=== PATIENT | female | born 1995 | race Hispanic/Latino ===

== ENCOUNTER 2023-06-05 18:27 | Emergency (ER) | payer OTHER, SELFPAY ==
[2023-06-05 19:05] LABS: #Basophils 0.1 10x3/uL (0.0-0.2); #Eosinphils 0.8 10x3/uL (0.0-0.5); #Monocytes 0.6 10x3/uL (0.0-1.1); #Neutrophils 7.1 10x3/uL (1.5-8.4); %Basophils 0.5 % (0.0-2.0); %Eosinophils 7.4 % (0.0-6.0); %Lymphocytes 21.9 % (18.0-47.0); %Monocytes 5.2 % (0.0-10.0); %Neutrophils 64.6 % (40.0-75.0); Hemoglobin 14.7 g/dL (12.0-15.5); Mean Corpuscular Hemoglobin 29.2 pg (27.0-33.0); Mean Corpuscular Volume 83.3 fl (81.6-98.3); Mean Platelet Volume 9.4 fl (7.4-10.4); Platelet Count 286 10x3/uL (150-450); RBC Distribution Width 12.7 % (11.5-14.5); Red Blood Cell (RBC) Count 5.04 10x6/uL (3.90-5.03)
[2023-06-05 19:17] LABS: ALT (SGPT) 35 U/L (8-55); AST (SGOT) 21 U/L (5-34); Albumin 4.1 g/dL (3.5-5.0); Alkaline Phosphatase 64 U/L (40-110); Anion Gap 14 mmol/L (10-20); BUN (Urea Nitrogen) 12 mg/dL (7.0-18.7); Bilirubin, Total 0.7 mg/dL (0.2-1.2); Calc. Creatinine Clearance 0 mL/min (70-130); Calcium 9.1 mg/dL (7.8-10.44); Carbon Dioxide 26 mmol/L (22-29); Chloride 102 mmol/L (98-107); Estimated GFR 120; Globulin 3.6 g/dL (2.4-3.5); Glucose 98 mg/dL (70-105); Lipase 25 U/L (8-78); Potassium 3.8 mmol/L (3.5-5.1); Protein, Total 7.7 g/dL (6.0-8.3); Sodium 138 mmol/L (136-145)
[2023-06-05 19:20] LABS: BHCG - Serum Negative (NEGATIVE); Pregs Control Background? CLEAR/WHITE (CLR/WHITE); Pregs Control Bar Appear? YES (CONTROL BAR)
[2023-06-05] MEDS ORDERED: Famotidine/PF 20 mg/2ml Vial ONE (20:27)
[2023-06-05 20:53] LABS: Bilirubin Neg (Negative); Blood, Urine Negative (Negative); Glucose, Urine (Dipstick) Normal (Negative); Ketone, Urine Negative (Negative); Leukocyte Negative (Negative); Nitrite Negative (Negative); Protein, Urine (Dipstick) 30 mg/dl (Neg-Trace)
[2023-06-05 20:54] LABS: Clarity Clear (Clear)
[2023-06-05 21:00] LABS: Bacteria/HPF 2+ HPF (None Seen); CAUTI Indications for Culture Dysuria,urgency,freq; Squamous Epithelial 0-3 HPF (0-3); WBC/HPF 0-3 HPF (0-3)
[2023-06-05 21:02] LABS: Urine Culture Reflex No No
[2023-06-05] MEDS ORDERED: Ondansetron PF 4 MG/2 ML Vial ONE (21:14)
[2023-06-05] MEDS ORDERED: Dicyclomine 20 MG/2 ML VIAL ONE (21:15)
[2023-06-05] MEDS ORDERED: Dicyclomine 20 MG TAB ONE (21:16)
== END 2023-06-05 22:00 | disposition home or self-care (01) ==
LOC: CSHERS 18:27
DX: R19.7 Diarrhea, unspecified (principal); R10.9 Unspecified abdominal pain
CPT/HCPCS: 36415; 80053; 81001; 83690; 84703; 85025; 96361; 96374; 96375; J2405; S0028

== ENCOUNTER 2023-08-06 22:42 | Emergency (ER) | payer BC ==
[2023-08-06] MEDS ORDERED: Aspirin Chewable 81 MG TAB ONE (23:35)
[2023-08-06 23:46] LABS: #Basophils 0.1 10x3/uL (0.0-0.2); #Eosinphils 0.6 10x3/uL (0.0-0.5); #Monocytes 0.6 10x3/uL (0.0-1.1); #Neutrophils 6.9 10x3/uL (1.5-8.4); %Basophils 0.5 % (0.0-2.0); %Eosinophils 5.4 % (0.0-6.0); %Lymphocytes 25.4 % (18.0-47.0); %Monocytes 5.4 % (0.0-10.0); %Neutrophils 62.8 % (40.0-75.0); Hematocrit 37.6 % (34.9-44.5); Hemoglobin 12.9 g/dL (12.0-15.5); Mean Corpuscular HGB CONC 34.3 g/dL (32.0-36.0); Mean Corpuscular Hemoglobin 29.3 pg (27.0-33.0); Mean Corpuscular Volume 85.3 fl (81.6-98.3); Mean Platelet Volume 9.3 fl (7.4-10.4); Platelet Count 280 10x3/uL (150-450); RBC Distribution Width 12.2 % (11.5-14.5); Red Blood Cell (RBC) Count 4.41 10x6/uL (3.90-5.03); White Blood Cell (WBC) Count 11.1 10x3/uL (3.5-10.5)
[2023-08-06 23:58] LABS: Troponin I Less than 0.010 ng/mL (< 0.028)
[2023-08-07 00:01] LABS: ALT (SGPT) 26 U/L (8-55); AST (SGOT) 23 U/L (5-34); Albumin 3.7 g/dL (3.5-5.0); Alkaline Phosphatase 62 U/L (40-110); Anion Gap 12 mmol/L (10-20); BUN (Urea Nitrogen) 10 mg/dL (7.0-18.7); Bilirubin, Total 0.2 mg/dL (0.2-1.2); Calc. Creatinine Clearance 0 mL/min (70-130); Carbon Dioxide 24 mmol/L (22-29); Chloride 106 mmol/L (98-107); Estimated GFR 115; Globulin 3.1 g/dL (2.4-3.5); Glucose 105 mg/dL (70-105); Lipase 36 U/L (8-78); Magnesium 1.8 mg/dL (1.6-2.6); Potassium 3.6 mmol/L (3.5-5.1); Protein, Total 6.8 g/dL (6.0-8.3); Sodium 138 mmol/L (136-145)
[2023-08-07 01:15] LABS: BHCG - Serum Negative (NEGATIVE); Pregs Control Background? CLEAR/WHITE (CLR/WHITE); Pregs Control Bar Appear? YES (CONTROL BAR)
[2023-08-07 01:38] LABS: Troponin I Less than 0.010 ng/mL (< 0.028)
[2023-08-07] MEDS ORDERED: Iopamidol 370 76% 100 ML VIAL ONE (09:33)
== END 2023-08-07 02:59 | disposition home or self-care (01) ==
LOC: CSHERS 22:42
DX: R07.81 Pleurodynia (principal); I10 Essential (primary) hypertension; Z79.899 Other long term (current) drug therapy
CPT/HCPCS: 71045; 71275; 80053; 83690; 83735; 83880; 84443; 84484; 84703; 85025; 85379; 93005